=== PATIENT | female | born 1990 | race Caucasian/White ===

== ENCOUNTER 2020-09-18 03:47 | Emergency (ER) | payer MEDICAID, SELFPAY ==
[2020-09-18 04:10] VITALS: BP 122/89; PULSE 71; RESP 14; TEMP 36.5; O2SAT 99; BMI 16.2
[2020-09-18] MEDS: LORazepam 1 MG TABLET 2 MG PO (04:50)
[2020-09-18 05:16] LABS: Glucose Urine UA NEG (NEG); Leukocyte Esterase Urine NEG (NEG); Nitrite Urine NEG (NEG); PH 6.5 (5.0-8.0); UACC Culture Trigger NO; Urine Blood 1+ (NEG); Urine Ketones NEG (NEG); Urine Protein NEG (NEG-TRACE)
[2020-09-18 05:19] LABS: Appearance Urine CLEAR; Color Urine YELLOW; UPreg QC Valid YES; Urine Pregnancy NEGATIVE (NEGATIVE)
[2020-09-18 05:31] LABS: Mucus Urine TRACE /LPF; RBC Urine 0-2 /HPF (0); Squamous Epithelial Cell Urine TRACE /LPF
[2020-09-18 05:36] LABS: Amphetamine Screen Urine Not Detected (Not Detect); Barbiturates, Urine Not Detected (Not Detect); Benzodiazepines Screen Urine Not Detected (Not Detect); Cannabinoid Screen Urine POSITIVE (Not Detect); Cocaine Screen Urine POSITIVE (Not Detect); Opiate Screen Urine Not Detected (Not Detect); Phencyclidine Screen Urine Not Detected (Not Detect)
--- NOTE | 2020-09-18 05:48 | PC.NURSE ---
Patient currently appears sleeping, reported anxiety 11/18, provider notified ordered Ativan 2 mg administered as ordered w/ effect, med rec completed/pending provider's approval and APR update, patient compliant with oil change technician process, alert and oriented x 4, mood depressed, affect flat/sad, N referral completd via smart-sheet, confirmed by [facility] overnight regional facilities specialist Yumiko, patient will be seen in the morning, labs pending, VSS, will continue to monitor.
[2020-09-18 05:49] LABS: Influenza A PCR NEGATIVE (Negative); Influenza B PCR NEGATIVE (Negative); Resp Syncy Virus RNA Qual PCR NEGATIVE (Negative); SARS COV2 PCR INHOUSE NEGATIVE (Negative)
--- NOTE | 2020-09-18 07:43 | PC.NURSE ---
patient appears to remain at rest at present, appears asleep respirations are even and unlabored.
--- NOTE | 2020-09-18 08:26 | ED_ITS ---
HPI - Psych General Chief Complaint: Psychiatric Symptoms <Ed Tpaia MD - Last Filed: 09/19/20 06:56> Stated Complaint: intoxication, SI <Ed Tapia MD - Last Filed: 09/19/20 06:56> Time Seen by Provider: 09/18/20 04:43 <Ed Tapia MD - Last Filed: 09/19/20 06:56> Source: patient <Ed Tapia MD - Last Filed: 09/19/20 06:56> Mode of arrival: ambulatory <Ed Tapia MD - Last Filed: 09/19/20 06:56> Limitations: no limitations <Ed Tapia MD - Last Filed: 09/19/20 06:56> History of Present Illness HPI Narrative: 30-year-old female who presents emergency department for evaluation of depression anxiety and hopelessness with suicidal ideation and plans to harm herself. The information mainly comes from the nursing notes. Patient was brought to the emergency department by a friend she made multiple suicidal statements to her friend. She denied having suicidal or homicidal ideation to the nursing staff. The patient did state that she had increased depression anxiety and hopelessness triggered by getting fired from her job 2 weeks prior. She rates her depression is 6/10, her anxiety is 10/10. She has been taking Seroquel at that time for her anxiety but this is not helping therefore she has been drinking alcohol. I was able to obtain more information on the patient after she was more awake. Patient states that she got in a fight with her girlfriend and became very upset. She then drinks 7 shots of Fireball whiskey and had several beers to drink. She also did a line of cocaine. She states that she was very upset and does admit to making suicidal statements to a friend. She states that she does have a history of depression anxiety and has had a psychiatric hospitalization in the past. She states she has tried to kill herself in the past by cutting herself. <Ed Tapia MD - Last Filed: 09/19/20 06:56> Related Data Home Medications: Home Medications Medication Instructions Recorded Confirmed quetiapine 100 mg tablet 100 mg PO BEDTIME 09/18/20 09/18/20 <Ed Tapia MD - Last Filed: 09/19/20 06:56> Allergies/Adverse Reactions: Allergies Allergy/AdvReac Type Severity Reaction Status Date / Time amoxicillin AdvReac Hives Verified 09/18/20 04:20 <Ed Tapia MD - Last Filed: 09/19/20 06:56> Review of Systems Review of Systems: Yes all other systems are reviewed and are negative <Ed Tapia MD - Last Filed: 09/19/20 06:56> [facility] Past Medical History [facility] Narrative: Past medical history: Depression, anxiety. Social history: The patient is a former smoker, she quit 6 months prior, she smoked 1/2 pack of cigarettes per day for 2 years. The patient states that she did drink heavily in the past but drinks only occasionally however when she gets upset she states she binge drinks. The patient does admit to smoking marijuana and using cocaine. <Ed Tapia MD - Last Filed: 09/19/20 06:56> Social History Social History: Social History Advance Directives: No Advance Directives Information Provided: No Healthcare Proxy: No Guardian: No Patient : No <Ed Tapia MD - Last Filed: 09/19/20 06:56> Physical Exam Vital Signs: Vital Signs: Last Vital Signs Temp 98.2 F 09/19/20 01:11 Pulse 71 09/19/20 01:11 Resp 14 09/18/20 04:10 BP 116/60 09/19/20 01:11 Pulse Ox 98 09/19/20 01:11 Body Mass Index 16.2 <Ed Tapia MD - Last Filed: 09/19/20 06:56> Vital Signs: Last Vital Signs Temp 98.2 F 09/19/20 01:11 Pulse 71 09/19/20 01:11 Resp 14 09/18/20 04:10 BP 116/60 09/19/20 01:11 Pulse Ox 98 09/19/20 01:11 Body Mass Index 16.2 <STAR Matthews - Last Filed: 09/18/20 17:52> Const: General: cooperative and no acute distress <Ed Tapia MD - Last Filed: 09/19/20 06:56> Orientation/consciousness: oriented to person and oriented to place <MD Braeden Eldridge Last Filed: 09/19/20 06:56> Limitations: no limitations <MD Braeden Eldridge Last Filed: 09/19/20 06:56> HENMT: Head: Yes normal to inspection, Yes normocephalic and Yes atraumatic <MD Braeden Eldridge Last Filed: 09/19/20 06:56> Ears: external ears normal <MD Braeden Eldridge Last Filed: 09/19/20 06:56> General nose exam: Normal external nose present <MD Braeden Eldridge Last Filed: 09/19/20 06:56> Face and sinus: Yes normal facial exam <MD Braeden Eldridge Last Filed: 09/19/20 06:56> Mouth: Normal oral and palatal mucosa present <MD Braeden Eldridge Last Filed: 09/19/20 06:56> Throat: Yes posterior oropharynx normal <MD Braeden Eldridge Last Filed: 09/19/20 06:56> Eyes: General: appearance normal, both eyes and all related structures <MD Braeden Eldridge Last Filed: 09/19/20 06:56> Pupils: Equal, round and reactive pupils present <MD Braeden Eldridge Last Filed: 09/19/20 06:56> Neck: Neck: Yes normal visual inspection, Yes no lymphadenopathy, Yes trachea midline and Yes supple <MD Braeden Eldridge Last Filed: 09/19/20 06:56> Chest: Chest palpation & inspection: normal inspection of the chest and normal palpation of entire chest wall <MD Braeden Eldridge Last Filed: 09/19/20 06:56> Resp: Effort & Inspection: normal respiratory effort and able to speak in complete sentences <MD Braeden Eldridge Last Filed: 09/19/20 06:56> Auscultation: clear to auscultation bilaterally <MD Braeden Eldridge Last Filed: 09/19/20 06:56> Cardio: Rate: regular rate <Ed Tapia MD - Last Filed: 09/19/20 06:56> Rhythm: regular rhythm <Ed Tapia MD - Last Filed: 09/19/20 06:56> Heart sounds: S1 normal heart sound present, S2 normal heart sound present and no murmurs <Ed Tapia MD - Last Filed: 09/19/20 06:56> GI: Inspection: Yes normal to inspection <Ed Tapia MD - Last Filed: 09/19/20 06:56> Palpation (GI): Soft to palpation, nontender and no guarding <Ed Tapia MD - Last Filed: 09/19/20 06:56> Auscultation: normal bowel sounds <Ed Tapia MD - Last Filed: 09/19/20 06:56> : General: Yes no CVA tenderness <Ed Tapia MD - Last Filed: 09/19/20 06:56> Back/Spine/Pelvis: Back: no CVA tenderness <Ed Tapia MD - Last Filed: 09/19/20 06:56> Skin: General skin exam: no rashes or lesions noted <MD Braeden Eldridge Last Filed: 09/19/20 06:56> Neuro: General: oriented to person and oriented to place <Ed Tapia MD - Last Filed: 09/19/20 06:56> Cranial nerves: Yes CN's II-XII intact bilaterally and Yes Equal, round and reactive pupils present <MD Braeden Eldridge Last Filed: 09/19/20 06:56> Cognition (Neuro): normal cognition <MD Braeden Eldridge Last Filed: 09/19/20 06:56> Motor exam (neuro): 5/5 motor strength present throughout <MD Braeden Eldridge Last Filed: 09/19/20 06:56> Extrem: General: Yes normal to inspection <MD Braeden Eldridge Last Filed: 09/19/20 06:56> Psych: Appearance: grossly normal <Ed Tapia MD - Last Filed: 09/19/20 06:56> Speech and movement: Normal speech and movement present <Ed Tapia MD - Last Filed: 09/19/20 06:56> Affect: Sad affect present <Ed Tapia MD - Last Filed: 09/19/20 06:56> Attitude: cooperative <Ed Tapia MD - Last Filed: 09/19/20 06:56> Thought process: Normal thought process present <Ed Tapia MD - Last Filed: 09/19/20 06:56> Thought content: Normal thought content present <Ed Tapia MD - Last Filed: 09/19/20 06:56> Course Course Course Narrative: 30-year-old female who is brought to the emergency department for evaluation of anxiety, depression and suicidal ideation. The patient's depression has been exacerbated by her losing her job 2 weeks prior. Physical examination was unremarkable. Urinalysis was unremarkable. Urine test was negative. tox screen was positive for cocaine and marijuana. The patient's coronavirus, influenza and RSV tests were negative. The patient is medically cleared for psychiatric evaluation for suicidal ideation. 1657: The patient's CBC and comprehensive metabolic panel unremarkable. Urinalysis and urine tests were negative. Urine tox screen was positive for cocaine and marijuana. Patient does admit to using these 2 substances. Patient's COVID-19 test was negative. The patient has been evaluated by the care team and a final disposition is still pending. At this time the patient is cooperative is willing to wait for disposition. If the patient wants to leave, we will place her on a Section 12 until the disposition can be determined by the care team. At the end of my shift, I did sign the patient out to my colleague, Dr. Gregory. <Ed Tapia MD - Last Filed: 09/19/20 06:56> MDM - Psych Lab Data Result diagrams: : 09/18/20 11:28 09/18/20 11:28 <Ed Tapia MD - Last Filed: 09/19/20 06:56> Labs: Lab Results 09/18/20 09/18/20 09/18/20 Range/Units 04:48 04:48 04:48 WBC (4.8-10.8) X10*3/uL RBC (4.20-5.50) X10*6/uL Hgb (12.0-16.0) g/dl Hct (37-47) % MCV (80-98) fL MCH (27.0-33.0) pg MCHC (31.0-35.0) g/dl RDW (11.0-16.0) % Plt Count (160-400) X10*3/uL MPV (9.4-12.3) fL Immature Gran % (Auto) (0.0-0.4) % Neut % (Auto) (45-73) % Lymph % (Auto) (20-40) % Garrard % (Auto) (2-11) % Eos % (Auto) (0-4) % Baso % (Auto) (0-2) % Lymph # (Auto) (1.2-4.9) X10*3/uL Garrard # (Auto) (0.1-1.2) X10*3/uL Eos # (Auto) (0.0-0.4) X10*3/uL Baso # (Auto) (0.0-0.2) X10*3/uL Abs Immat Gran (auto) (0.00-0.03) X10*3/uL Absolute Neuts (auto) (2.0-8.3) X10*3/uL Absolute Nucleated RBC (0.0-0.012) X10*3/uL Nucleated RBC % (auto) (0.0-0.2) /100WBC Sodium (135-145) mmol/L Potassium (3.3-5.1) mmol/L Chloride (96-108) mmol/L Carbon Dioxide (22-29) mmol/L Anion Gap (12-20) BUN (9-16) mg/dL Creatinine (0.5-1.4) mg/dL Estim Creat Clear Calc Estimated GFR Random Glucose (60-115) mg/dL Calcium (8.4-10.2) mg/dL Magnesium (1.6-2.6) mg/dL Urine Color YELLOW Urine Appearance CLEAR Urine pH 6.5 (5.0-8.0) Ur Specific Beaver 1.010 (1.005-1.025) Urine Protein NEG (NEG-TRACE) MG/DL Urine Glucose (UA) NEG (NEG) MG/DL Urine Ketones NEG (NEG) MG/DL Urine Blood 1+ H (NEG) Urine Nitrite NEG (NEG) Ur Leukocyte Esterase NEG (NEG) Urine RBC 0-2 (0) /HPF Urine WBC 1-4 (0-4) /HPF Ur Squamous Epith Cells TRACE /LPF Urine Bacteria NONE /LPF Urine Mucus TRACE /LPF Urine Test NEGATIVE (NEGATIVE) Urine Opiates Screen (Not Detect) Ur Barbiturates Screen (Not Detect) Ur Phencyclidine Scrn (Not Detect) Ur Amphetamines Screen (Not Detect) U Benzodiazepines Scrn (Not Detect) Urine Cocaine Screen (Not Detect) U Marijuana (THC) Screen (Not Detect) Ethyl Alcohol mg/dL Coronavirus (PCR) NEGATIVE (Negative) Influenza Type A (PCR) NEGATIVE (Negative) Influenza Type B (PCR) NEGATIVE (Negative) RSV RNA Qual (PCR) NEGATIVE (Negative) 09/18/20 09/18/20 09/18/20 Range/Units 04:48 11:28 11:28 WBC 10.1 (4.8-10.8) X10*3/uL RBC 4.33 (4.20-5.50) X10*6/uL Hgb 12.5 (12.0-16.0) g/dl Hct 37.3 (37-47) % MCV 86.1 (80-98) fL MCH 28.9 (27.0-33.0) pg MCHC 33.5 (31.0-35.0) g/dl RDW 12.8 (11.0-16.0) % Plt Count 245 (160-400) X10*3/uL MPV 11.1 (9.4-12.3) fL Immature Gran % (Auto) 0.3 (0.0-0.4) % Neut % (Auto) 87.6 H (45-73) % Lymph % (Auto) 7.3 L (20-40) % Garrard % (Auto) 4.1 (2-11) % Eos % (Auto) 0.4 (0-4) % Baso % (Auto) 0.3 (0-2) % Lymph # (Auto) 0.7 L (1.2-4.9) X10*3/uL Garrard # (Auto) 0.4 (0.1-1.2) X10*3/uL Eos # (Auto) 0.0 (0.0-0.4) X10*3/uL Baso # (Auto) 0.0 (0.0-0.2) X10*3/uL Abs Immat Gran (auto) 0.03 (0.00-0.03) X10*3/uL Absolute Neuts (auto) 8.9 H (2.0-8.3) X10*3/uL Absolute Nucleated RBC 0.000 (0.0-0.012) X10*3/uL Nucleated RBC % (auto) 0.0 (0.0-0.2) /100WBC Sodium 141 (135-145) mmol/L Potassium 4.1 (3.3-5.1) mmol/L Chloride 107 (96-108) mmol/L Carbon Dioxide 25 (22-29) mmol/L Anion Gap 13 (12-20) BUN 6 L (9-16) mg/dL Creatinine 0.78 (0.5-1.4) mg/dL Estim Creat Clear Calc 70.0 Estimated GFR > 60 Random Glucose 102 (60-115) mg/dL Calcium 10.0 (8.4-10.2) mg/dL Magnesium 1.9 (1.6-2.6) mg/dL Urine Color Urine Appearance Urine pH (5.0-8.0) Ur Specific Beaver (1.005-1.025) Urine Protein (NEG-TRACE) MG/DL Urine Glucose (UA) (NEG) MG/DL Urine Ketones (NEG) MG/DL Urine Blood (NEG) Urine Nitrite (NEG) Ur Leukocyte Esterase (NEG) Urine RBC (0) /HPF Urine WBC (0-4) /HPF Ur Squamous Epith Cells /LPF Urine Bacteria /LPF Urine Mucus /LPF Urine Test (NEGATIVE) Urine Opiates Screen Not Detected (Not Detect) Ur Barbiturates Screen Not Detected (Not Detect) Ur Phencyclidine Scrn Not Detected (Not Detect) Ur Amphetamines Screen Not Detected (Not Detect) U Benzodiazepines Scrn Not Detected (Not Detect) Urine Cocaine Screen POSITIVE H (Not Detect) U Marijuana (THC) Screen POSITIVE H (Not Detect) Ethyl Alcohol mg/dL Coronavirus (PCR) (Negative) Influenza Type A (PCR) (Negative) Influenza Type B (PCR) (Negative) RSV RNA Qual (PCR) (Negative) 09/18/20 Range/Units 11:28 WBC (4.8-10.8) X10*3/uL RBC (4.20-5.50) X10*6/uL Hgb (12.0-16.0) g/dl Hct (37-47) % MCV (80-98) fL MCH (27.0-33.0) pg MCHC (31.0-35.0) g/dl RDW (11.0-16.0) % Plt Count (160-400) X10*3/uL MPV (9.4-12.3) fL Immature Gran % (Auto) (0.0-0.4) % Neut % (Auto) (45-73) % Lymph % (Auto) (20-40) % Garrard % (Auto) (2-11) % Eos % (Auto) (0-4) % Baso % (Auto) (0-2) % Lymph # (Auto) (1.2-4.9) X10*3/uL Garrard # (Auto) (0.1-1.2) X10*3/uL Eos # (Auto) (0.0-0.4) X10*3/uL Baso # (Auto) (0.0-0.2) X10*3/uL Abs Immat Gran (auto) (0.00-0.03) X10*3/uL Absolute Neuts (auto) (2.0-8.3) X10*3/uL Absolute Nucleated RBC (0.0-0.012) X10*3/uL Nucleated RBC % (auto) (0.0-0.2) /100WBC Sodium (135-145) mmol/L Potassium (3.3-5.1) mmol/L Chloride (96-108) mmol/L Carbon Dioxide (22-29) mmol/L Anion Gap (12-20) BUN (9-16) mg/dL Creatinine (0.5-1.4) mg/dL Estim Creat Clear Calc Estimated GFR Random Glucose (60-115) mg/dL Calcium (8.4-10.2) mg/dL Magnesium (1.6-2.6) mg/dL Urine Color Urine Appearance Urine pH (5.0-8.0) Ur Specific Beaver (1.005-1.025) Urine Protein (NEG-TRACE) MG/DL Urine Glucose (UA) (NEG) MG/DL Urine Ketones (NEG) MG/DL Urine Blood (NEG) Urine Nitrite (NEG) Ur Leukocyte Esterase (NEG) Urine RBC (0) /HPF Urine WBC (0-4) /HPF Ur Squamous Epith Cells /LPF Urine Bacteria /LPF Urine Mucus /LPF Urine Test (NEGATIVE) Urine Opiates Screen (Not Detect) Ur Barbiturates Screen (Not Detect) Ur Phencyclidine Scrn (Not Detect) Ur Amphetamines Screen (Not Detect) U Benzodiazepines Scrn (Not Detect) Urine Cocaine Screen (Not Detect) U Marijuana (THC) Screen (Not Detect) Ethyl Alcohol < 10 mg/dL Coronavirus (PCR) (Negative) Influenza Type A (PCR) (Negative) Influenza Type B (PCR) (Negative) RSV RNA Qual (PCR) (Negative) <Ed Tapia MD - Last Filed: 09/19/20 06:56> Lab Results 09/18/20 09/18/20 09/18/20 Range/Units 04:48 04:48 04:48 WBC (4.8-10.8) X10*3/uL RBC (4.20-5.50) X10*6/uL Hgb (12.0-16.0) g/dl Hct (37-47) % MCV (80-98) fL MCH (27.0-33.0) pg MCHC (31.0-35.0) g/dl RDW (11.0-16.0) % Plt Count (160-400) X10*3/uL MPV (9.4-12.3) fL Immature Gran % (Auto) (0.0-0.4) % Neut % (Auto) (45-73) % Lymph % (Auto) (20-40) % Garrard % (Auto) (2-11) % Eos % (Auto) (0-4) % Baso % (Auto) (0-2) % Lymph # (Auto) (1.2-4.9) X10*3/uL Garrard # (Auto) (0.1-1.2) X10*3/uL Eos # (Auto) (0.0-0.4) X10*3/uL Baso # (Auto) (0.0-0.2) X10*3/uL Abs Immat Gran (auto) (0.00-0.03) X10*3/uL Absolute Neuts (auto) (2.0-8.3) X10*3/uL Absolute Nucleated RBC (0.0-0.012) X10*3/uL Nucleated RBC % (auto) (0.0-0.2) /100WBC Sodium (135-145) mmol/L Potassium (3.3-5.1) mmol/L Chloride (96-108) mmol/L Carbon Dioxide (22-29) mmol/L Anion Gap (12-20) BUN (9-16) mg/dL Creatinine (0.5-1.4) mg/dL Estim Creat Clear Calc Estimated GFR Random Glucose (60-115) mg/dL Calcium (8.4-10.2) mg/dL Magnesium (1.6-2.6) mg/dL Urine Color YELLOW Urine Appearance CLEAR Urine pH 6.5 (5.0-8.0) Ur Specific Beaver 1.010 (1.005-1.025) Urine Protein NEG (NEG-TRACE) MG/DL Urine Glucose (UA) NEG (NEG) MG/DL Urine Ketones NEG (NEG) MG/DL Urine Blood 1+ H (NEG) Urine Nitrite NEG (NEG) Ur Leukocyte Esterase NEG (NEG) Urine RBC 0-2 (0) /HPF Urine WBC 1-4 (0-4) /HPF Ur Squamous Epith Cells TRACE /LPF Urine Bacteria NONE /LPF Urine Mucus TRACE /LPF Urine Test NEGATIVE (NEGATIVE) Urine Opiates Screen (Not Detect) Ur Barbiturates Screen (Not Detect) Ur Phencyclidine Scrn (Not Detect) Ur Amphetamines Screen (Not Detect) U Benzodiazepines Scrn (Not Detect) Urine Cocaine Screen (Not Detect) U Marijuana (THC) Screen (Not Detect) Ethyl Alcohol mg/dL Coronavirus (PCR) NEGATIVE (Negative) Influenza Type A (PCR) NEGATIVE (Negative) Influenza Type B (PCR) NEGATIVE (Negative) RSV RNA Qual (PCR) NEGATIVE (Negative) 09/18/20 09/18/20 09/18/20 Range/Units 04:48 11:28 11:28 WBC 10.1 (4.8-10.8) X10*3/uL RBC 4.33 (4.20-5.50) X10*6/uL Hgb 12.5 (12.0-16.0) g/dl Hct 37.3 (37-47) % MCV 86.1 (80-98) fL MCH 28.9 (27.0-33.0) pg MCHC 33.5 (31.0-35.0) g/dl RDW 12.8 (11.0-16.0) % Plt Count 245 (160-400) X10*3/uL MPV 11.1 (9.4-12.3) fL Immature Gran % (Auto) 0.3 (0.0-0.4) % Neut % (Auto) 87.6 H (45-73) % Lymph % (Auto) 7.3 L (20-40) % Garrard % (Auto) 4.1 (2-11) % Eos % (Auto) 0.4 (0-4) % Baso % (Auto) 0.3 (0-2) % Lymph # (Auto) 0.7 L (1.2-4.9) X10*3/uL Garrard # (Auto) 0.4 (0.1-1.2) X10*3/uL Eos # (Auto) 0.0 (0.0-0.4) X10*3/uL Baso # (Auto) 0.0 (0.0-0.2) X10*3/uL Abs Immat Gran (auto) 0.03 (0.00-0.03) X10*3/uL Absolute Neuts (auto) 8.9 H (2.0-8.3) X10*3/uL Absolute Nucleated RBC 0.000 (0.0-0.012) X10*3/uL Nucleated RBC % (auto) 0.0 (0.0-0.2) /100WBC Sodium 141 (135-145) mmol/L Potassium 4.1 (3.3-5.1) mmol/L Chloride 107 (96-108) mmol/L Carbon Dioxide 25 (22-29) mmol/L Anion Gap 13 (12-20) BUN 6 L (9-16) mg/dL Creatinine 0.78 (0.5-1.4) mg/dL Estim Creat Clear Calc 70.0 Estimated GFR > 60 Random Glucose 102 (60-115) mg/dL Calcium 10.0 (8.4-10.2) mg/dL Magnesium 1.9 (1.6-2.6) mg/dL Urine Color Urine Appearance Urine pH (5.0-8.0) Ur Specific Beaver (1.005-1.025) Urine Protein (NEG-TRACE) MG/DL Urine Glucose (UA) (NEG) MG/DL Urine Ketones (NEG) MG/DL Urine Blood (NEG) Urine Nitrite (NEG) Ur Leukocyte Esterase (NEG) Urine RBC (0) /HPF Urine WBC (0-4) /HPF Ur Squamous Epith Cells /LPF Urine Bacteria /LPF Urine Mucus /LPF Urine Test (NEGATIVE) Urine Opiates Screen Not Detected (Not Detect) Ur Barbiturates Screen Not Detected (Not Detect) Ur Phencyclidine Scrn Not Detected (Not Detect) Ur Amphetamines Screen Not Detected (Not Detect) U Benzodiazepines Scrn Not Detected (Not Detect) Urine Cocaine Screen POSITIVE H (Not Detect) U Marijuana (THC) Screen POSITIVE H (Not Detect) Ethyl Alcohol mg/dL Coronavirus (PCR) (Negative) Influenza Type A (PCR) (Negative) Influenza Type B (PCR) (Negative) RSV RNA Qual (PCR) (Negative) 09/18/20 Range/Units 11:28 WBC (4.8-10.8) X10*3/uL RBC (4.20-5.50) X10*6/uL Hgb (12.0-16.0) g/dl Hct (37-47) % MCV (80-98) fL MCH (27.0-33.0) pg MCHC (31.0-35.0) g/dl RDW (11.0-16.0) % Plt Count (160-400) X10*3/uL MPV (9.4-12.3) fL Immature Gran % (Auto) (0.0-0.4) % Neut % (Auto) (45-73) % Lymph % (Auto) (20-40) % Garrard % (Auto) (2-11) % Eos % (Auto) (0-4) % Baso % (Auto) (0-2) % Lymph # (Auto) (1.2-4.9) X10*3/uL Garrard # (Auto) (0.1-1.2) X10*3/uL Eos # (Auto) (0.0-0.4) X10*3/uL Baso # (Auto) (0.0-0.2) X10*3/uL Abs Immat Gran (auto) (0.00-0.03) X10*3/uL Absolute Neuts (auto) (2.0-8.3) X10*3/uL Absolute Nucleated RBC (0.0-0.012) X10*3/uL Nucleated RBC % (auto) (0.0-0.2) /100WBC Sodium (135-145) mmol/L Potassium (3.3-5.1) mmol/L Chloride (96-108) mmol/L Carbon Dioxide (22-29) mmol/L Anion Gap (12-20) BUN (9-16) mg/dL Creatinine (0.5-1.4) mg/dL Estim Creat Clear Calc Estimated GFR Random Glucose (60-115) mg/dL Calcium (8.4-10.2) mg/dL Magnesium (1.6-2.6) mg/dL Urine Color Urine Appearance Urine pH (5.0-8.0) Ur Specific Beaver (1.005-1.025) Urine Protein (NEG-TRACE) MG/DL Urine Glucose (UA) (NEG) MG/DL Urine Ketones (NEG) MG/DL Urine Blood (NEG) Urine Nitrite (NEG) Ur Leukocyte Esterase (NEG) Urine RBC (0) /HPF Urine WBC (0-4) /HPF Ur Squamous Epith Cells /LPF Urine Bacteria /LPF Urine Mucus /LPF Urine Test (NEGATIVE) Urine Opiates Screen (Not Detect) Ur Barbiturates Screen (Not Detect) Ur Phencyclidine Scrn (Not Detect) Ur Amphetamines Screen (Not Detect) U Benzodiazepines Scrn (Not Detect) Urine Cocaine Screen (Not Detect) U Marijuana (THC) Screen (Not Detect) Ethyl Alcohol < 10 mg/dL Coronavirus (PCR) (Negative) Influenza Type A (PCR) (Negative) Influenza Type B (PCR) (Negative) RSV RNA Qual (PCR) (Negative) <STAR Matthews - Last Filed: 09/18/20 17:52> Discharge Plan Discharge Clinical Impression: Depression with suicidal ideation, Alcohol use disorder, Cocaine use <Ed Tapia MD - Last Filed: 09/19/20 06:56> Prescriptions: No Action quetiapine 100 mg Tablet 100 mg PO BEDTIME RF: 0 <Ed Tapia MD - Last Filed: 09/19/20 06:56>
[2020-09-18 11:37] LABS: MANUAL DIFF FLAG NO
[2020-09-18 11:41] LABS: Basophils Percent Auto 0.3 % (0-2); Eosinophils Percent Auto 0.4 % (0-4); Hematocrit 37.3 % (37-47); Hemoglobin 12.5 g/dl (12.0-16.0); Imm Gran Abs Auto 0.03 X10*3/uL (0.00-0.03); Imm Gran Pct Auto 0.3 % (0.0-0.4); Lymphocytes Absolute Auto 0.7 X10*3/uL (1.2-4.9); Lymphocytes Percent Auto 7.3 % (20-40); Mean Corpuscular HGB Conc 33.5 g/dl (31.0-35.0); Mean Corpuscular Hemoglobin 28.9 pg (27.0-33.0); Mean Corpuscular Volume 86.1 fL (80-98); Mean Platelet Volume 11.1 fL (9.4-12.3); Monocytes Absolute Auto 0.4 X10*3/uL (0.1-1.2); Monocytes Percent Auto 4.1 % (2-11); Neutrophils Absolute Auto 8.9 X10*3/uL (2.0-8.3); Neutrophils Percent Auto 87.6 % (45-73); Platelet Count 245 X10*3/uL (160-400); Red Blood Count 4.33 X10*6/uL (4.20-5.50); Red Cell Distribution Width 12.8 % (11.0-16.0); White Blood Count 10.1 X10*3/uL (4.8-10.8)
[2020-09-18 12:01] LABS: Ethanol < 10 mg/dL
[2020-09-18 12:04] LABS: Anion Gap 13 (12-20); Blood Urea Nitrogen 6 mg/dL (9-16); Carbon Dioxide 25 mmol/L (22-29); Chloride 107 mmol/L (96-108); Estimated Glomerular Filt Rate > 60; Glucose Random 102 mg/dL (60-115); Magnesium 1.9 mg/dL (1.6-2.6); Potassium 4.1 mmol/L (3.3-5.1); Sodium 141 mmol/L (135-145)
[2020-09-18] MEDS: LORazepam 0.5 MG TABLET 2 MG PO ×2 (13:22→20:45)
--- NOTE | 2020-09-18 18:08 | MHC.CARE ---
Met with pt and it was determined that she does not meet in patient level of care. Pt will remain here for the evening with a plan to be discharged in the morning.
[2020-09-18] MEDS: QUEtiapine Fumarate 100 MG TABLET PO ×2 (20:45→20:46)
[2020-09-19 01:11] VITALS: BP 116/60; PULSE 71; TEMP 36.8; O2SAT 98
--- NOTE | 2020-09-19 06:22 | PC.NURSE ---
Patient slept through the night, no distress observed/reported, behavior appropriate, med compliant, disposition is d/c home to mother in [facility], patient is currently trying to get ride home, appetite good, no safety concerns at this time, will continue to monitor.
== END 2020-09-19 10:48 | disposition home or self-care (01) ==
PROVIDERS: Internal Medicine; Emergency Provider Emergency Medicine Emergency Medical Services
DX: F32.9 Major depressive disorder, single episode, unspecified (principal); R45.851 Suicidal ideations; F41.9 Anxiety disorder, unspecified; F14.90 Cocaine use, unspecified, uncomplicated; F12.90 Cannabis use, unspecified, uncomplicated; Z79.899 Other long term (current) drug therapy; Z72.89 Other problems related to lifestyle
CPT/HCPCS: 0241U; 36415; 80048; 80307; 81001; 81025; 82077; 83735; 85025; 99284